=== PATIENT | female | born 1980 | race Caucasian/White ===

== ENCOUNTER 2017-01-11 11:10 | Emergency (ER) | payer MEDICAID, OTHER ==
[~2017-01-11] VITALS: Ht 167.6 cm; Wt 80.5 kg
[2017-01-11 11:22] VITALS: BP 110/70
[2017-01-11] MEDS ORDERED: IBUPROFEN 200 MG TABLET ONE (11:41)
[2017-01-11] MEDS ORDERED: IBUPROFEN 200 MG TABLET PO ONE (12:00)
== END 2017-01-11 12:48 | disposition home or self-care (01) ==
LOC: ED 12:42
DX: S93.401A Sprain of unspecified ligament of right ankle, initial encounter (principal); J45.909 Unspecified asthma, uncomplicated; K75.9 Inflammatory liver disease, unspecified; Z85.43 Personal history of malignant neoplasm of ovary; X58.XXXA Exposure to other specified factors, initial encounter; Y93.89 Activity, other specified; Y92.89 Other specified places as the place of occurrence of the external cause; Y99.8 Other external cause status
CPT/HCPCS: 99284

== ENCOUNTER 2017-06-19 18:56 | Emergency (ER) | payer MEDICAID, OTHER ==
[~2017-06-19] VITALS: Ht 167.6 cm; Wt 82.0 kg
[2017-06-19] MEDS ORDERED: PREN1COM3 PO (19:10)
[2017-06-19 19:49] LABS: ASPARTATE AMINO TRANSFERASE 16 U/L (15-37); BLOOD UREA NITROGEN 12 mg/dL (7-18)
[2017-06-19 20:12] LABS: HEMATOCRIT 24.3 % (34.6-47.8); HEMOGLOBIN 7.1 g/dL (11.7-16.4); WHITE BLOOD COUNT 7.2 x10^3/uL (3.4-10)
[2017-06-19 21:01] VITALS: BP 125/62
[2017-06-19 21:18] LABS: DIFF TOTAL CELLS COUNTED 100 CELL DIFF
[2017-06-19 21:29] LABS: ANISOCYTOSIS 1+; VERIFY COUNTS? YES
[2017-06-19 21:30] LABS: HYPOCHROMIA 1+; MICROCYTOSIS 2+; OVALOCYTES 1+; POLYCHROMASIA 1+
[2017-06-19 21:33] LABS: LARGE PLATELETS 1+
== END 2017-06-19 21:05 | disposition home or self-care (01) ==
LOC: ED 20:30
DX: O34.81 Maternal care for other abnormalities of pelvic organs, first trimester (principal); O99.011 Anemia complicating pregnancy, first trimester; Z3A.08 8 weeks gestation of pregnancy; R10.30 Lower abdominal pain, unspecified; J45.909 Unspecified asthma, uncomplicated
CPT/HCPCS: 36415; 76856; 80053; 81001; 84702; 85025; 86901; 87086; 87147; 99285

== ENCOUNTER 2017-07-06 22:15 | Emergency (ER) | payer MEDICAID ==
[~2017-07-06] VITALS: Ht 167.6 cm; Wt 80.9 kg
[~2017-07-06 22:15] MED LIST: PREN1COM3 PO
[2017-07-06 22:17] VITALS: BP 129/79
[2017-07-06] MEDS ORDERED: KETOROLAC 30 MG/1 ML ONE (23:55)
[2017-07-07] MEDS: KETOROLAC 30 MG/1 ML IM ONE
== END 2017-07-07 00:14 | disposition home or self-care (01) ==
LOC: ED 23:59
DX: S29.012A Strain of muscle and tendon of back wall of thorax, initial encounter (principal); J45.909 Unspecified asthma, uncomplicated; M62.830 Muscle spasm of back; X58.XXXA Exposure to other specified factors, initial encounter; Y93.89 Activity, other specified; Y92.89 Other specified places as the place of occurrence of the external cause; Y99.8 Other external cause status
CPT/HCPCS: 96372; 99283; J1885